=== PATIENT | male | born 1940 | race Caucasian/White ===

== ENCOUNTER → 2016-12-29 | Outpatient (CLI) | payer MEDICARE | END | disposition home or self-care (01) | LOC: PCVCCLINIC 14:03 | PROVIDERS: ATTEND Internal Medicine Cardiovascular Disease | DX: I25.10 Atherosclerotic heart disease of native coronary artery without angina pectoris (principal); E78.00 Pure hypercholesterolemia, unspecified; Z79.82 Long term (current) use of aspirin | CPT/HCPCS: 80061; 93005; G0463 ==

== ENCOUNTER → 2017-06-28 | Outpatient (CLI) | payer MEDICARE ==
--- NOTE | 2017-06-28 15:22 | PCVCIMAG ---
APPROVED REPORT Exam: Stress Echocardiogram Indication: Hyperlipidemia, Abnormal Calcium Score Stress Nurse: Jessica Sanchez RN Status: routine Ht: 5 ft 11 in HR: 85 bpm Procedure The patient underwent an Exercise Stress Test using the Tyron Protocol. Blood pressure, heart rate, and EKG were monitored. An Echocardiogram was performed by automotive specialty technician in four stages in quad fashion. At peak stress, four selected images were obtained and placed side by side with resting images for comparison. Stress Test Details Stress Test: Exercise stress testing was performed using a Tyron protocol. HR Resting HR: 85 bpmMax Heart Rate (APMHR): 142 bpm Max HR Achieved: 146 bpmTarget HR (85% APMHR): 120 bpm % of APMHR: 102 HR response to stress: Normal HR response to stress BP Resting BP: 119/70 mmHg Max BP: 156/70 mmHg ECG Resting ECG: Sinus Rhythm Stress ECG: Sinus Rhythm Clinical Reason for Termination: Maximal effort Exercise duration: 6 min 41 sec Highest Stage Achieved: Stage 3: 3.4 mph at 14% grade. Exercise capacity: 9.10 METs Overall Exercise Capacity for Age: Good Pre-Stress Echo The resting Echocardiogram showed normal left ventricular contractility with an estimated Ejection Fraction of about 55-60%. Normal wall motion in all segments on baseline images. Post-Stress Echo The stress Echocardiogram showed normal left ventricular contractility with an estimated Ejection Fraction of about 60-65%. Normal augmentation of wall motion in all segments on post stress images. Clinical No clinical or ECG evidence for ischemia. Conclusion Clinical Response: Non-ischemic Exercise Capacity: Average Stress ECG Response: Non-ischemic Stress Echo Images: Non-ischemic The left ventricle is normal in size and wall thickness in both the rest and stress images. Other Information Study Quality: Adequate <Conclusion> The left ventricle is normal in size and wall thickness in both the rest and stress images.
== END | disposition home or self-care (01) ==
LOC: PCVCIMAG 13:38
PROVIDERS: ATTEND Internal Medicine Cardiovascular Disease
DX: I25.10 Atherosclerotic heart disease of native coronary artery without angina pectoris (principal); E78.5 Hyperlipidemia, unspecified; E83.59 Other disorders of calcium metabolism
CPT/HCPCS: 80061; 93325; 93351

== ENCOUNTER → 2018-01-03 | Outpatient (CLI) | payer MEDICARE | END | disposition home or self-care (01) | LOC: PCVCCLINIC 13:33 | DX: I25.10 Atherosclerotic heart disease of native coronary artery without angina pectoris (principal); E78.00 Pure hypercholesterolemia, unspecified; R93.1 Abnormal findings on diagnostic imaging of heart and coronary circulation; C90.00 Multiple myeloma not having achieved remission; Z79.82 Long term (current) use of aspirin; Z79.899 Other long term (current) drug therapy | CPT/HCPCS: 80061; 93005; G0463 ==

== ENCOUNTER → 2018-08-30 | Outpatient (CLI) | payer MEDICARE ==
--- NOTE | 2018-08-30 12:24 | PCVCIMAG ---
APPROVED REPORT Study performed: 08/30/2018 10:32:21 Exam: Stress Echocardiogram Indication: CAD , Hyperlipidemia Patient Location: Echo lab Stress Nurse: Tg Fernandes RN Room #: 2 Status: routine Ht: 5 ft 11 in HR: 65 bpm BP: 114/68 mmHg Rhythm: NSR Medical History Medical History: CAD non obstructive, Hyperlipidemia,Ca Cardiac Risk Factors: Hyperlipidemia,elev cor ca score Previous Cardiac Procedures: none Pretest Chest Pain Characteristics: No chest pain Exercise History: Indeterminate Physical Disabilities: Knees Procedure The patient underwent an Exercise Stress Test using the Tyron Protocol. Blood pressure, heart rate, and EKG were monitored. An Echocardiogram was performed by corrosion control technician in four stages in quad fashion. At peak stress, four selected images were obtained and placed side by side with resting images for comparison. Stress Test Details Stress Test: Exercise stress testing was performed using a Tyron protocol. HR Resting HR: 65 bpmMax Heart Rate (APMHR): 141 bpm Max HR Achieved: 116 bpmTarget HR (85% APMHR): 119 bpm % of APMHR: 82 Recovery HR: 64 bpm HR response to stress: Normal HR response to stress BP Resting BP: 114/68 mmHg Max BP: 142/64 mmHg Recovery BP: 110/60 mmHg BP response to stress: Normal blood pressure response to stress. ECG Resting ECG: Sinus Rhythm Stress ECG: Sinus Rhythm ST Change: Non-ischemic Arrhythmia: Rare PVCs,one 4 beat run PVCs Recovery ECG: Sinus Rhythm Recovery ST Change: Non-ischemic Recovery Arrhythmia: None Clinical Reason for Termination: Maximal effort Stress Symptoms: none Exercise duration: 6 min 12 sec Highest Stage Achieved: Stage 3: 3.4 mph at 14% grade. Exercise capacity: 7.5 METs Overall Exercise Capacity for Age: Average Angina Score: None Stress ECG Conclusion The patient exercised according to the TYRON protocol for 6:12 mins; achieving a work level of 7.5 METS. The resting heart rate of 65 bpm juan c to a maximum heart rate of 116 bpm. This value represent 82% of the maximal, age-predicted heart rate. The resting blood pressure of 114/68 mmHg, juan c to a maximum blood pressure of 142/62mmHg. The exercise test was stopped due to fatigue . Pre-Stress Echo The resting Echocardiogram showed normal left ventricular contractility with an estimated Ejection Fraction of about 55-60%. Normal wall motion in all segments on baseline images. Post-Stress Echo The stress Echocardiogram showed normal left ventricular contractility with an estimated Ejection Fraction of about 60-65%. Normal augmentation of wall motion in all segments on post stress images. Clinical No clinical or ECG evidence for ischemia. Conclusion Clinical Response: Non-ischemic Exercise Capacity: Average Stress ECG Response: Non-ischemic Stress Echo Images: Non-ischemic No clinical, EKG or echocardiographic evidence for ischemia. Normal stress echocardiogram with maximal exercise stress. Non-diagnostic study due to inability of the patient to achieve 85% of maximal HR. <Conclusion> No clinical, EKG or echocardiographic evidence for ischemia. Normal stress echocardiogram with maximal exercise stress. Non-diagnostic study due to inability of the patient to achieve 85% of maximal HR.
== END | disposition home or self-care (01) ==
LOC: PCVCIMAG 10:37
PROVIDERS: ATTEND Internal Medicine Cardiovascular Disease
DX: I25.10 Atherosclerotic heart disease of native coronary artery without angina pectoris (principal); R93.1 Abnormal findings on diagnostic imaging of heart and coronary circulation; E78.5 Hyperlipidemia, unspecified
CPT/HCPCS: 93325; 93351

== ENCOUNTER → 2019-05-04 | Outpatient (CLI) | payer MEDICARE | END | disposition home or self-care (01) | LOC: PCVCCLINIC 11:00 | PROVIDERS: ATTEND Internal Medicine Cardiovascular Disease | DX: R93.1 Abnormal findings on diagnostic imaging of heart and coronary circulation (principal); E78.00 Pure hypercholesterolemia, unspecified; C90.00 Multiple myeloma not having achieved remission; Z79.82 Long term (current) use of aspirin | CPT/HCPCS: 36415; 80061; 93005; G0463 ==